=== PATIENT | female | born 1950 | race Caucasian/White ===

== ENCOUNTER 2022-12-19 10:00 | Emergency (ER) | payer MEDICARE ==
[~2022-12-19] VITALS: Ht 175.3 cm; Wt 69.1 kg
[2022-12-19 10:09] VITALS: BP 125/77; PULSE 92; O2SAT 98
[2022-12-19] MEDS ORDERED: dexamethasone sod phosphate 10mg/ml inj IM STA (10:23)
[2022-12-19] MEDS ORDERED: ketorolac trometh. 30mg/ml inj. IV ONE (10:25)
[2022-12-19] MEDS ORDERED: SUMAtriptan succ. 6 MG/0.5ml vial SQ ONE (10:25)
[2022-12-19] MEDS ORDERED: normal saline 1000ML IV soln IVB ONE (10:25)
[2022-12-19] MEDS ORDERED: proMETHazine 12.5mg rectal suppository RC ONE (10:25)
[2022-12-19 10:53] VITALS: RESP 20
[2022-12-19] MEDS ORDERED: SUMA100T PO (12:30)
[2022-12-19] MEDS ORDERED: PROM25SU51 RC (12:31)
== END 2022-12-19 12:21 | disposition home or self-care (01) ==
LOC: ER 10:02
DX: G43.909 Migraine, unspecified, not intractable, without status migrainosus (principal); Z88.5 Allergy status to narcotic agent; Z79.899 Other long term (current) drug therapy
CPT/HCPCS: 96372; 96374; 99284; J1100; J1885; J3030; J7030